=== PATIENT | female | born 1985 | race Caucasian/White ===

== ENCOUNTER 2017-02-01 10:55 | Emergency (ER) | payer MEDICAID ==
[~2017-02-01] VITALS: Ht 154.9 cm; Wt 84.0 kg
[~2017-02-01 10:55] MED LIST: CYCL-319 PO; IBUP-1542 PO
[2017-02-01 11:01] VITALS: Ht 154.9 cm; Wt 84.0 kg
[2017-02-01] MEDS ORDERED: ACETAMINOPHEN 325 MG TAB PO STA (11:21)
[2017-02-01] MEDS ORDERED: SOD CHLORIDE 0.9% 1,000 ML IV STA ×2 (11:21→12:50)
[2017-02-01] MEDS ORDERED: FAMOTIDINE 20 MG TAB PO STA (11:25)
[2017-02-01 11:57] LABS: BASOPHILS % 0.2 % (0.0-2.0); EOSINOPHILS # 0.1 10^3/ul (0.0-0.5); EOSINOPHILS % 0.4 % (0.0-7.0); HEMATOCRIT 40.5 % (37.0-47.0); HEMOGLOBIN 13.5 g/dl (12.0-16.0); LYMPHOCYTES # 1.3 10^3/ul (0.8-2.9); LYMPHOCYTES % 6.9 % (15.0-51.0); MEAN CORPUSCULAR HEMOGLOBIN 27.4 pg (29.0-33.0); MEAN CORPUSCULAR HGB CONC 33.3 g/dl (32.0-37.0); MEAN CORPUSCULAR VOLUME 82.3 fl (82.0-101.0); MEAN PLATELET VOLUME 9.5 fl (7.4-10.4); MONOCYTE # 1.2 10^3/ul (0.3-0.9); NEUTROPHIL # 16.8 10^3/ul (1.6-7.5); NEUTROPHILS % 85.9 % (39.0-77.0); PLATELET COUNT 451 10^3/UL (140-415); RED BLOOD COUNT 4.92 10^6/ul (4.20-5.40); RED CELL DISTRIBUTION WIDTH 12.4 % (11.5-14.5); WHITE BLOOD COUNT 19.5 10^3/ul (4.8-10.8)
[2017-02-01 12:11] LABS: ADD UMIC YES; UR ASCORBIC ACID NEGATIVE (NEGATIVE); UR BACTERIA FEW /HPF (NONE SEEN); UR BILIRUBIN (Dip) NEGATIVE (NEGATIVE); UR BLOOD (Dip) NEGATIVE (NEGATIVE); UR CLARITY SLIGHTLY CLOUDY (CLEAR); UR COLOR YELLOW (YELLOW); UR GLUCOSE (Dip) NEGATIVE (NEGATIVE); UR KETONES (Dip) NEGATIVE (NEGATIVE); UR LEUKOCYTE ESTERASE (Dip) 1+ Leu/ul (NEGATIVE); UR MUCUS FEW /HPF (NONE SEEN); UR NITRITE (Dip) NEGATIVE (NEGATIVE); UR RBC 1 /HPF (0-5); UR SPECIFIC GRAVITY (Dip) 1.021 (1.003-1.030); UR SQUAMOUS EPITHELIAL CELL FEW /HPF (FEW); UR TOTAL PROTEIN (Dip) NEGATIVE (NEGATIVE); UR UROBILINOGEN (Dip) NEGATIVE (NEGATIVE)
--- NOTE | 2017-02-01 12:13 | RADRPT ---
PROCEDURE: US Abdomen. CLINICAL INDICATION: Epigastric Pain TECHNIQUE: Multiple real-time images were acquired of the patient's abdomen and retroperitoneum on the right utilizing a high resolution transducer. COMPARISON: None FINDINGS: The liver demonstrates normal echogenicity. The liver is normal in size and no focal solid lesions are seen. The portal vein is patent with normal direction of flow. No intrahepatic biliary dilatat ion is seen. The liver measures 13.3 cm in length. The gallbladder surgically absent. The common bile duct measures 5.5 mm in maximal dimension, within normal limits. The visualized portions of the pancreas are unremarkable. No free fluid is identified. The right kidney measures 11.0 cm. The right renal cortical echogenicity is within normal limits. No shadowing right renal nephrolithiasis is seen. No hydronephrosis on the right. IMPRESSION: Status post cholecystectomy. Otherwise, unremarkable right upper quadrant abdominal ultrasound. RPTAT: PP Physician Cecy Date Time Electronically viewed and signed by Physician Cecy on 02/01/2017 12:12 STEVEN/
[2017-02-01 12:19] LABS: ALBUMIN/GLOBULIN RATIO 1.28
[2017-02-01 12:20] LABS: ALBUMIN 4.9 g/dl (3.3-4.9); BILIRUBIN,INDIRECT 0.5 mg/dl (0-1.1); BILIRUBIN,TOTAL 0.5 mg/dl (0.2-1.3); CALCIUM 9.8 mg/dl (8.4-10.2); CREATININE 0.81 mg/dl (0.44-1.00); POTASSIUM 4.5 mmol/L (3.5-5.1); TOTAL PROTEIN 8.7 g/dl (6.1-8.1)
[2017-02-01] MEDS ORDERED: KETOROLAC 30 MG INJ IV STA (12:26)
[2017-02-01] MEDS ORDERED: CEFTRIAXONE 1 GM/50 ML (PMX) 50 ML IVPB STA (12:26)
[2017-02-01] MEDS ORDERED: NITR-58 PO (12:41)
[2017-02-01] MEDS ORDERED: ONDA4TAB14 PO (12:42)
--- NOTE | 2017-02-01 12:50 | ERD ---
ER Documentation Chief Complaint Date/Time DATE: 02/01/17 TIME: 12:50 Chief Complaint RT UPPER ABD PAIN WITH DIARRHEA TODAY HPI 31-year-old female presents to the emergency room complaining of right upper quadrant abdominal pain, nausea, couple episodes of nonbilious nonbloody vomiting and diarrhea since this morning. Patient rates the pain 6 out of 10, intermittent and achy. Patient denies any fevers, constipation. She states that she is unsure if she has had a cholecystectomy in the past ROS All systems reviewed and are negative except as per history of present illness. Medications Home Meds Active Scripts Ondansetron (Ondansetron Odt) 4 Mg Tab.rapdis, 4 MG PO Q6H Y for NAUSEA AND/OR VOMITING, #20 TAB Prov:DAVID HENDRIX PA-C 02/01/17 Nitrofurantoin Monohyd Macrocr* (Macrobid*) 100 Mg Capsr, 100 MG PO BID for 3 Days, CAP Prov:DAVID HENDRIX PA-C 02/01/17 Cyclobenzaprine Hcl* (Cyclobenzaprine Hcl*) 10 Mg Tablet, 10 MG PO TID, #15 TAB Prov:ROLANDO MARQUIS PA-C 12/24/15 Ibuprofen* (Motrin*) 600 Mg Tab, 600 MG PO Q6, #30 TAB Prov:ROLANDO MARQUIS PA-C 12/24/15 Allergies Allergies: Coded Allergies: No Known Allergy (Unverified , 12/24/13) PMhx/Soc History of Surgery: Yes (; REMOVAL OF GALLSTONES) Anesthesia Reaction: No Hx Neurological Disorder: No Hx Respiratory Disorders: No Hx Cardiac Disorders: No Hx Psychiatric Problems: No Hx Miscellaneous Medical Probl: Yes (GALLSTONES) Hx Alcohol Use: No Hx Substance Use: No Hx Tobacco Use: No Smoking Status: Never smoker Physical Exam Vitals Vital Signs Date Time Temp Pulse Resp B/P Pulse Ox O2 Delivery O2 Flow Rate FiO2 02/01/17 11:01 98.6 106 18 127/77 98 Physical Exam GENERAL: well-developed/well-nourished, in no apparent distress, non-toxic appearing HENT: NC/AT, moist mucous membranes EYES: Conjunctiva normal NECK: Supple, no lymphadenopathy PULM: CTA bilaterally, no rales, rhonchi, or wheezing heard CV: Normal S1S2, RRR, good capillary refill GI: Soft, non-distended, tender to palpation in the epigastric region Normal bowel sounds, no masses or organomegaly felt on exam No gross peritonitis, no bruits Negative Rovsing, negative Delgado, negative McBurney's point, Negative CVAT BACK: No masses EXT: No clubbing, cyanosis, or edema NEURO: Alert and Orientated SKIN: Intact, normal turgor PSYCH: Normal mood and mentation Result Diagram: 02/01/17 1130 02/01/17 1130 Results 24 hrs Laboratory Tests Test 02/01/17 11:30 White Blood Count 19.510^3/ul Red Blood Count 4.9210^6/ul Hemoglobin 13.5g/dl Hematocrit 40.5% Mean Corpuscular Volume 82.3fl Mean Corpuscular Hemoglobin 27.4pg Mean Corpuscular Hemoglobin Concent 33.3g/dl Red Cell Distribution Width 12.4% Platelet Count 57839^3/UL Mean Platelet Volume 9.5fl Neutrophils % 85.9% Lymphocytes % 6.9% Monocytes % 6.0% Eosinophils % 0.4% Basophils % 0.2% Nucleated Red Blood Cells % 0.0/100WBC Neutrophils # 16.810^3/ul Lymphocytes # 1.310^3/ul Monocytes # 1.210^3/ul Eosinophils # 0.110^3/ul Basophils # 0.010^3/ul Nucleated Red Blood Cells # 0.010^3/ul Urine Color YELLOW Urine Clarity SLIGHTLY CLOUDY Urine pH 5.0 Urine Specific [place] 1.021 Urine Ketones NEGATIVEmg/dL Urine Nitrite NEGATIVEmg/dL Urine Bilirubin NEGATIVEmg/dL Urine Urobilinogen NEGATIVEmg/dL Urine Leukocyte Esterase 1+Jaime/ul Urine Microscopic RBC 1/HPF Urine Microscopic WBC 7/HPF Urine Squamous Epithelial Cells FEW/HPF Urine Bacteria FEW/HPF Urine Mucus FEW/HPF Urine Hemoglobin NEGATIVEmg/dL Urine Glucose NEGATIVEmg/dL Urine Total Protein NEGATIVEmg/dl Sodium Level 142mmol/L Potassium Level 4.5mmol/L Chloride Level 101mmol/L Carbon Dioxide Level 24mmol/L Anion Gap 22 Blood Urea Nitrogen 9mg/dl Creatinine 0.81mg/dl Glucose Level 96mg/dl Calcium Level 9.8mg/dl Total Bilirubin 0.5mg/dl Direct Bilirubin 0.00mg/dl Indirect Bilirubin 0.5mg/dl Aspartate Amino Transf (AST/SGOT) 39IU/L Alanine Aminotransferase (ALT/SGPT) 51IU/L Alkaline Phosphatase 99IU/L Total Protein 8.7g/dl Albumin 4.9g/dl Globulin 3.80g/dl Albumin/Globulin Ratio 1.28 Lipase 49U/L Current Medications Medications (Trade) Dose Ordered Sig/Baldev Route PRN Reason Start Time Stop Time Status Last Admin Dose Admin Sodium Chloride (NS) 1,000 ml @ 1,000 mls/hr Q1H STAT IV 02/01/17 11:21 02/01/17 12:20 DC 02/01/17 11:40 Acetaminophen (Tylenol Tab) 650 mg ONCE STAT PO 02/01/17 11:21 02/01/17 11:24 DC 02/01/17 11:40 Famotidine 20 mg 20 mg ONCE STAT PO 02/01/17 11:25 02/01/17 11:27 DC 02/01/17 12:07 Ceftriaxone Sodium (Rocephin) 50 ml @ 100 mls/hr ONCE STAT IVPB 02/01/17 12:26 02/01/17 12:37 DC Ketorolac Tromethamine 30 mg 30 mg ONCE STAT IV 02/01/17 12:26 02/01/17 12:28 DC 02/01/17 12:43 Sodium Chloride (NS) 1,000 ml @ 1,000 mls/hr Q1H STAT IV 02/01/17 12:50 02/01/17 13:49 02/01/17 12:55 Procedures/MDM This is a 31-year-old female presenting to the emergency department with right upper quadrant abdominal pain, diarrhea and vomiting since today which is likely due to a viral gastroenteritis . Low suspicion for pseudomembranous colitis, diverticulitis, appendicitis, cholecystitis, pancreatitis, or other abdominal emergencies or acute cardiopulmonary conditions due to physical examination and diagnostic testing. Labs were drawn, CBC showed evidence of leukocytosis. CMP did not show any liver, renal, or electrolyte abnormalities. Lipase was unremarkable. UA showed + 1 leukocyte esterase. urine preg was negative. Patient was given 1 l of normal saline fluids, Zofran, and Toradol with improvement of nausea and pain. I have reassessed the patient and she significantly is a lot better therefore I believe she is stable to be discharged home however have given her strict precautions to return to the emergency department for any worsening sinus symptoms. A gallbladder ultrasound was done in the ED and showed evidence of cholecystectomy Prescription Zofran, Macrobid was given. Discussed to increase fluids. Discussed to return to the ED if not improving as expected or for any worsening conditions. Patient understood and agreed with this plan. Departure Diagnosis: Primary Impression: Epigastric pain Additional Impression: Nausea vomiting and diarrhea Condition: Stable Patient Instructions: Diet, Vomiting Or Diarrhea [6Yr-Adult], Epigastric Pain ( Uncertain Cause), Vomiting And Diarrhea, Nonspecific (Adult) Additional Instructions: FOLLOW UP WITH YOUR PRIMARY CARE PHYSICIAN TOMORROW.Return to this facility if you are not improving as expected. Take all medicines as directed. Return to this facility if you are not improving as expected. DAVID HENDRIX PA-C Feb 01, 2017 12:50
[2017-02-01] MEDS ORDERED: LORAZEPAM 2 MG INJ IV STA (13:43)
[2017-02-01 14:28] VITALS: BP 123/67; PULSE 109; RESP 20; TEMP 98.3
== END 2017-02-01 14:30 | disposition home or self-care (01) ==
LOC: FTE 10:55
DX: R10.13 Epigastric pain (principal); R11.2 Nausea with vomiting, unspecified; R19.7 Diarrhea, unspecified
CPT/HCPCS: 36415; 76705; 80053; 81001; 83690; 85025; 96374; 96375; J1885; J2060; J7030; Z7502; Z7610